=== PATIENT | female | born 1960 ===

== ENCOUNTER 2025-08-20 14:09 | Outpatient (AMB) | payer MEDICARE, SELFPAY ==
--- NOTE | 2025-08-20 14:09 | MHC.OFFVIS ---
Vital Signs 08/20/25 15:07 Height 5 ft 6 in Weight 159 lb BMI 25.7 BP 120/86 Blood Pressure Location Lt brachial Position Sitting Respiration 16 Pulse 89 Pulse Source Pulse Oximeter Pulse Oximetry (%) 94 Oxygen Delivery Method Room Air Intake Visit Reasons: Re-Establish Care - Migraine Allergies amoxicillin Allergy (Unknown, Verified 08/20/25 14:22) Unknown HPI Comments Details: Daysi is a 64-year-old female patient with a past medical history kidney stones, tobacco use, and headache who I was seeing at [facility] for evaluation of her headaches. I have seen her last in April of 2025 and she is here today to reestablish care with me at [facility]. At the time of our last visit, she had seen some improvement in her headaches with physical therapy though we had continued to discuss her sleep and profound snoring/has been arousals in relation to her ongoing headaches. Her sleep study has been scheduled for June. Her sleep study was completed on 07/03/2025 and was significant for obstructive sleep apnea and possible nocturnal hypoxia. She has been recommended titration study however she did not wish to complete a titration study though she is open to trying a CPAP device at home. To review: Her headaches has been historically predominant left-sided to the retro-orbital/periorbital area and preauricular area. She has no autonomic features, and no migrainous features such as photophobia, phonophobia, nausea. Headaches were often daily fluctuating throughout the day. Her headaches are described as a vice like/pressure sensation. Today she tells me that she continues to have pain to the center of her head as if she is wearing the crown. She has not noted any changes in her headaches since the time of the last visit as described above. Prior workup: MRI of the brain with and without contrast July 2022: No intracranial mass or mass effect. No acute intracranial process. Possible small focus of chronic microhemorrhage in the left cerebellar vermis. 06/2025: Home sleep test-obstructive sleep apnea and possible nocturnal hypoxemia noted on study. Past medication trials: Nortriptyline Gabapentin Hydroxyzine Cyclobenzaprine Physical therapy Rizatriptan [facility] Medical History Insomnia Osteoporosis Migraine Social History (Updated 08/20/25 @ 14:24 by Robby Chavez CMA) Household Members: Spouse Alcohol intake: never Patient Tobacco Use Status: Never used Tobacco Review of Systems Const All systems reviewed & are unremarkable except as noted in HPI and below Physical Exam Vital Signs: Last Vital Signs Pulse 89 08/20/25 15:07 Resp 16 08/20/25 15:07 BP 120/86 08/20/25 15:07 Pulse Ox 94 08/20/25 15:07 Oxygen Delivery Method Room Air 08/20/25 15:07 BMI result Body Mass Index 25.7 Const General: cooperative, healthy appearing, comfortable and no acute distress Nutritional Appearance: well nourished Orientation/consciousness: patient oriented x3 Limitations: no limitations HEENT Head: Yes normal to inspection and Yes normocephalic Eyes General: appearance normal, both eyes and all related structures Visual Gonzales: normal visual gonzales by confrontation Alignment and Position: alignment normal Periorbital: periorbital findings normal Eyelids: Yes eyelids normal Conjunctivae: conjunctivae normal Sclerae: sclerae normal Back/Spine/Pelvis Cervical Spine: normal cervical lordosis Thoracic/Lumbar Spine: thoracic and lumbar spine normal to inspection Neuro General: patient oriented x3 and deep tendon reflexes 2+ bilaterally Cranial nerves: Yes CN's II-XII intact bilaterally and Yes Facial sensation intact/muscles of mastication intact Cognition (Neuro): normal cognition Gait exam (Neuro): Normal gait present Motor exam (neuro): 5/5 motor strength present throughout and no tremor noted Sensory Exam: double simultaneous stimulation for sensation normal Romberg Test: Negative Pupils: Normal pupillary reactivity/response: bilateral Psych Appearance: grossly normal Mental Status: mental status grossly normal Speech and movement: Normal speech and movement present and Clear speech present Affect: normal affect Attitude: cooperative Thought process: Normal thought process present Thought content: Normal thought content present Insight: Good insight present (Psych) Judgement: Good judgement present (Psych) Assessment & Plan Assessment & Plan (1) Daily headache: Code(s): R51.9 - Headache, unspecified Category: Medical (2) LUTHER (obstructive sleep apnea): Code(s): G47.33 - Obstructive sleep apnea (adult) (pediatric) Category: Medical Plan Daysi is a 64-year-old female patient with a past medical history kidney stones, tobacco use, and headache who is here today for follow up evaluation. Her sleep study from early June of 2025 did show obstructive sleep apnea and possible nocturnal hypoxemia. She has been recommended a titration study however she does not wish to go through this and would rather start on auto CPAP as an alternative. I will order auto CPAP and see how she does with the therapy over the course of the next few months. We also discussed magnesium for adjunctive headache therapy provided it is nonsedating muscle benefits. -start c-pap therapy -start magnesium oxide 400 mg daily -follow-up in 3 months Medications: New magnesium oxide 400 mg PO DAILY 90 tabs 3RF 90 days Coding Level of Care Code Est Pt Level 4 (67779) Diagnoses Daily headache R51.9 LUTHER (obstructive sleep apnea) G47.33
[2025-08-20 15:07] VITALS: BP 120/86; PULSE 89; RESP 16; O2SAT 94; BMI 25.7
--- OUTSIDE RECORDS SUMMARY | 2025-08-20 20:22 | XMS_ITS | Continuity of Care Document ---
Author Organization [facility] Address [address] [place] [address] Phone [phone] Care Team Providers Care Lead Teller Name Role Phone Nancy Kemp CNP Care Team Information Rece iver [phone] Problems Active Problems Provider Date Osteoporosis Lyric Prieto M.D. Ons et: 06/22/2022 Multinodular goiter Lyric Prieto M.D. Onset: 06/22/2022 Kidney stone Lyric Prieto M.D. Ons et: 06/22/2022 Hirsutism Lyric Prieto M.D. Ons et: 06/22/2022 Subclinical hyperthyroidism Lyric morrissey M.D. Onset: 06/22/2022 Social History Type Date Description Comments Sex Female Sex Unknown Lives With Spouse Work Status Retired ETOH Use Occasionally consumes alcoho l Tobacco Use Start: Unknown Patient is a current smoke r, smokes every day 6/DAY Allergies and adverse reactions Active Allergies Criticality Reaction Severity Comments Date Bactrim Unable to assess criticality 06/22/2022 Medications Active Medications SIG Qnty Indications Order ing Provider Date [id number]/1.17ML Soln Prefill Syringe inject 2 syringes under the skin once every month for a total dose of 210 mg 7.02ml Lyric Prieto M.D. 06/04/2024 BD Pen Needle/Mini/Ultra-Fine/31 G X 5mm31G X 5 mm Misc use 1 pen needle once a day 100units Lyric Prieto M.D. 11/16/2022 Alcohol PrepPads 70% Pads use 1 alcohol pad to disinfect the are before Injection 100units Lyric Prieto M.D. 11/16/2022 [id number] use as directe d with forteo 30units Lyric Prieto M.D. 10/04/2022 Citracal Calcium+D Slow [id number] it Tablets ER 24HR 1 by mouth every day Lyric Prieto M.D. Multivitamin AdultsTablets 1 by mouth every day Lyric Prieto M.D. Vitamin P480qko (1000 Ut) Capsules 1 by mouth every day Lyric Prieto M.D. CulturelleCapsules 1 by mouth every day Lyric Prieto M.D. Vitamin [id number] Tablets 1 by mouth every day Lyric Prieto M.D. Vital Signs Date Vital Result Comment 11/11/2024 3:13pm BP Systolic 120 mmHg BP Diastolic 76 mmHg Heart Rate 90 /min Height 65 inches 5'5 Weight 158.00 lb BMI (Body Mass Index) 26.3 kg/m2 Results Test Acquired Date Facility Test Result H/L Range Note TSH Rfx on Abnormal to Free T4 05/27/2024 [facility] TSH Rfx on Abnormal to Free T4 0.845 uIU/mL 0.450-4. 500 Vitamin D, 25-Hydroxy, Total 05/27/2024 [facility] Vitamin D, 25-Hydroxy, Total 41 ng/mL 1 CMP14 05/27/2024 [facility] Glucose 100 mg/dL High 70-99 BUN 12 mg/dL 8-27 Creatinine 0.63 mg/dL 0.57-1.0 0 eGFR 98 mL/min/1.7 3 >59 Sodium 142 mmol/L 134-144 Potassium 4.7 mmol/L 3.5-5.2 Chloride 103 mmol/L 96-106 Carbon Dioxide, Total 27 mmol/L 20-29 Calcium 9.4 mg/dL 8.7-10.3 Protein, Total 6.1 g/dL 6.0-8.5 Albumin 4.2 g/dL 3.9-4.9 Globulin, Total 1.9 g/dL 1.5-4.5 Bilirubin, Total <0.2 mg/dL 0.0-1.2 Alkaline Phosphatase 75 IU/L 44-121 Ast (Sgot) 17 IU/L 0-40 Alt (SGPT) 11 IU/L 0-32 TSH RFX On Abnormal To Free T4 05/09/2024 [facility] TSH RFX On Abnormal To Free T4 <pending> Vitamin D 25 Hydroxy Esoterix 05/09/2024 [facility] Vitamin D 25 Hydroxy Esoterix <pending> Albumin 03/10/2023 [facility] Albumin 4.4 GM/DL (3.4-4.8 ) Calcium 03/10/2023 [facility] Calcium 9.7 mg/dL (8.6-10. 5) Creatinine 03/10/2023 [facility] Creatinine 0.7 mg/dL (0.5-1.0 ) Estimated GFR Creatinine 97 ML/MIN/1.7 3M2 2 Creatinine 11/02/2022 [facility] Creatinine 0.7 mg/dL (0.5-1.0 ) Estimated GFR Creatinine 98 ML/MIN/1.7 3M2 3 Calcium 11/02/2022 [facility] Calcium 9.9 mg/dL (8.6-10. 5) 25Oh Vitamin D 11/02/2022 [facility] 25Oh Vitamin D 56.8 NG/ML High (20-50) Albumin 11/02/2022 [facility] Albumin 4.5 GM/DL (3.4-4.8 ) Comprehensive Metabolic Panl 06/22/2022 [facility] Glucose 89 mg/dL (70-99) BUN 11 mg/dL (8-23) Creatinine 0.6 mg/dL (0.5-1.0 ) Sodium 140 mmol/L (133-145 ) Potassium 4.4 mmol/L (3.6-5.2 ) Chloride 101 mmol/L (98-107) Bicarbonate 30 mmol/L High (22-29) Anion Gap 9 (4-17) Albumin 4.7 GM/DL (3.4-4.8 ) Calcium 10.0 mg/dL (8.6-10. 5) Bilirubin,Total 0.2 mg/dL (0-1.2 ) Total Protein 6.6 GM/DL (6.2-8.2 ) Ag Ratio 2.5 Ast 18 U/L (0-32) Alk Phos 75 U/L (35-104) Alt 16 U/L (0-33) Estimated GFR Creatinine 100 ML/MIN/1.7 3M2 4 TSH With Reflex To FT4 06/22/2022 [facility] TSH With Reflex To FT4 0.72 uIU/mL (0.4-4.2 ) 25Oh Vitamin D 06/22/2022 [facility] 25Oh Vitamin D 71.1 NG/ML High (20-50) PTH, Intact 06/22/2022 [facility] PTH, Intact <pending> 1 Reference Range: All Ages: Target levels 30 - 100 2 Creatinine based est imated glomerular filtration (eGFR) in adults is calculated using the National [employer] recommended 2020 CKD-EPI equation. Estimates GFR from serum creatinine, age and sex. 3 Creatinine based est imated glomerular filtration (eGFR) in adults is calculated using the National [employer] recommended 2020 CKD-EPI equation. Estimates GFR from serum creatinine, age and sex. 4 Creatinine based est imated glomerular filtration (eGFR) in adults is calculated using the National [employer] recommended 2020 CKD-EPI equation. Estimates GFR from serum creatinine, age and sex. Procedures Date Code Description Status 03/10/2023 55464 Collection Of Venous Blood B y Venipuncture Completed 11/02/2022 68642 Collection Of Venous Blood B y Venipuncture Completed 06/22/2022 50076 Collection Of Venous Blood B y Venipuncture Completed Medical Devices Description No Information Available Encounters Type Date Location Provider Dx Diagnosis Office Visit 11/11/2024 3:00p Main Office Lyric Prieto M.D. E04.2 Nontoxic multinodular goiter M81.0 Age-related osteopor osis w/o current pathological fracture Assessments Date Code Description Provider 11/11/2024 E04.2 Nontoxic multinodular goiter Lyric Prieto M.D. 11/11/2024 M81.0 Age-related oste oporosis without current pathological fracture Lyric Prieto M.D. Plan of Treatment Future Appointment(s):* 11/03/2025 3:15 pm - Lyric Prieto M.D. at Main Office 03/10/2023 - Lyric Prieto M.D.* M81.0 Age-related osteoporosis without current pathological fracture * E04.2 Nontoxic multinodular goiter Functional Status Description No Information Available Mental Status Description No Information Available Referrals Description No Information Available
--- OUTSIDE RECORDS SUMMARY | 2025-08-20 20:22 | XMS_ITS | Clinical Summary ---
Author Organization [facility] Address [address] [place] [id number] Phone Care Team Providers Care Tool Analyst Name Role Phone Pino Benjamin MD Primary Care Provider [phone] Surgical History Surgery Date Site/Laterality Comments OTHER SURGICAL HISTORY PROCEDURE: DENIES PREVIOUS SURGERY Family History Relation Name Status Comments Father Alive healthy Mother htn, copd , Social History Tobacco Use Types Packs/Day Years Used Date Smoking Tobacco: Every Day Cigarettes Smokeless Tobacco: Never Alcohol Use Standard Drinks/Week Comments No 0 (1 standard drink = 0.6 oz pur e alcohol) Comments Unknown Sex and Gender Information Value Date Recorded Sex Assigned at Not on file Legal Sex Female 11:05 AM EST Gender Identity Not on file Sexual Orientation Not on file Obstetrics History Plan of Treatment Health Maintenance Due Date Last Done Comments Breast Cancer Screening 1960 Pneumococcal Vaccine: 50+ Years (1 of 2 - PCV) 1977 Zoster Vaccines (1 of 2) 2008 Cholesterol Screening (Lipid Panel) 09/27/2022 Hepatitis C Screening 09/27/2022 Medicare Annual Wellness Visit 09/27/2022 Osteoporosis Screening (Bone Density Screening) 09/27/2022 Social Influencers of Health Screening 09/27/2022 Falls Risk Assessment 2023 Depression Screening 10/30/2024 COVID-19 Vaccine (3 - 2024-2 6 season) 2025 03/18/2021, 02/19/2021 Influenza Vaccine (#1) 2025 Colorectal Cancer Screening: FIT-DNA (Cologuard) 11/30/2025 11/30/2022, 11/30/2022, 02/07/2019 DTaP,Tdap,and Td Vaccines (2 - Td or Tdap) 09/28/2026 09/28/2016 RSV Immunization Adult Patients (1 - 1-dose 75+ series) 2033 HIB Vaccines Aged Out No longer eligi ble based on patient's age to complete this topic HPV Vaccines Aged Out No longer eligi ble based on patient's age to complete this topic Hepatitis A Vaccines Aged Out No long er eligible based on patient's age to complete this topic Hepatitis B Vaccines Aged Out No long er eligible based on patient's age to complete this topic IPV Vaccines Aged Out No longer eligi ble based on patient's age to complete this topic MMR Vaccines Aged Out No longer eligi ble based on patient's age to complete this topic Meningococcal ACWY Vaccine Aged Out N o longer eligible based on patient's age to complete this topic Meningococcal B Vaccine Aged Out No l onger eligible based on patient's age to complete this topic RSV Immunization Patients Under 20 months Aged Out No longer eligible b ased on patient's age to complete this topic Varicella Vaccines Aged Out No longer eligible based on patient's age to complete this topic Insurance MEDICARE [facility] [[email or web address]] Care Teams Tool Analyst Relationship Specialty Start Date End Date Pino Benjamin MD [address] [place] [address] PCP - General 08/07/13
== END 2025-08-20 15:07 | disposition home or self-care (01) ==
LOC: HO.HSM 14:10
PROVIDERS: PCP Internal Medicine; Visit Provider Nurse Practitioner
DX: R51.9 Headache, unspecified (principal); G47.33 Obstructive sleep apnea (adult) (pediatric)
CPT/HCPCS: 99214

== ENCOUNTER → 2025-08-20 14:09 | Outpatient (BNVA) | payer MEDICARE, SELFPAY | PROVIDERS: PCP Internal Medicine; Visit Provider Nurse Practitioner | DX: G47.33 Obstructive sleep apnea (adult) (pediatric) (principal); R51.9 Headache, unspecified | CPT/HCPCS: 99212 ==